=== PATIENT | male | born 1965 | race Caucasian/White ===

== ENCOUNTER 2017-04-08 15:35 | Emergency (ER) | payer MEDICAID ==
[2017-04-08 16:21] VITALS: BP 138/92
--- NOTE | 2017-04-08 16:49 | EDM.PDOC ---
ED HPI GENERAL MEDICAL PROBLEM - General Chief Complaint: Laceration Stated Complaint: FELL OFF LADDER AND CUT EYE ALSO SORE RIGHT SIDE Time Seen by Provider: 04/08/17 16:44 Source of Information: Reports: Patient History Limitations: Reports: No Limitations - History of Present Illness INITIAL COMMENTS - FREE TEXT/NARRATIVE: Fell off ladder from 6 feet up about 2 hours ago. Hit back of right chest as he was falling. Injured above right eye with an open wound. Denies LOC, although he has been drinking. Denies headache, nausea, change of vision. Onset: Today Onset Time: 02:00 Location: Reports: Face Quality: Reports: Dull, Sharp (in back on right side, hurting to touch) Severity: Mild Worsens with: Reports: Breathing Associated Symptoms: Reports: No Other Symptoms Right Chest Pain Score (Numeric/FACES): 8 - Related Data Allergies Allergy/AdvReac Type Severity Reaction Status Date / Time No Known Allergies Allergy Verified 02/16/14 21:55 Home Meds: Home Meds NK [No Known Home Meds] 04/08/17 [History] Past Medical History - Past Health History Medical/Surgical History: Denies Medical/Surgical History Neurological History: Reports: Seizure - Infectious Disease History Infectious Disease History: Reports: Chicken Pox - Past Surgical History Musculoskeletal Surgical History: Reports: Other (See Below) Social & Family History - Tobacco Use Smoking Status *Q: Heavy Tobacco Smoker Years of Tobacco use: 35 Packs/Tins Daily: 1 - Caffeine Use Caffeine Use: Reports: Coffee, Soda - Alcohol Use Days Per Week of Alcohol Use: 7 Number of Drinks Per Day: 5 Total Drinks Per Week: 35 - Recreational Drug Use Recreational Drug Use: No ED ROS GENERAL - Review of Systems Review Of Systems: See Below Constitutional: Reports: No Symptoms, Other (has been drinking) HEENT: Reports: Ear Discharge, Ear Pain, Eye Pain Respiratory: Reports: Other (hurts over posterior chest wall with deep breathing ) Cardiovascular: Reports: No Symptoms Endocrine: Reports: No Symptoms Musculoskeletal: Reports: No Symptoms Skin: Reports: Wound (laceration above right eye) Neurological: Reports: No Symptoms ED EXAM, SKIN/RASH Exam: See Below Exam Limited By: Intoxication General Appearance: Alert, No Apparent Distress Eye Exam: Bilateral Eye: Normal Inspection, Periorbital Changes (laceration above right eye in eyebrow), Other Ears: Normal External Exam, Normal Canal, Hearing Grossly Normal, Normal TMs Throat/Mouth: Normal Inspection, Normal Lips, Normal Teeth, Normal Gums, Normal Oropharynx, Normal Voice, No Airway Compromise Head: Other (cut above right eye) Neck: Normal Inspection Respiratory/Chest: Lungs Clear, Other (tender over posterior ribs in post axillary line) Cardiovascular: Normal Peripheral Pulses Extremities: Normal Inspection, Normal Range of Motion Neurological: Alert, Oriented Psychiatric: Normal Affect, Normal Mood Skin: Wound/Incision (laceration above right eye in eyebrow. V shaped pulled open. no active bleeding) Location, Skin: Face Lymphatic: No Adenopathy Course - Vital Signs Last Recorded V/S: Last Vital Signs Temp 37 C 04/08/17 16:21 Pulse 116 H 04/08/17 16:21 Resp 18 04/08/17 16:21 BP 138/92 H 04/08/17 16:21 Pulse Ox 93 L 04/08/17 16:21 - Orders/Labs/Meds Orders: Active Orders 24 hr Category Date Time Status Ribs 3V wo Chest Rt [CR] Stat Exams 04/08/17 16:49 Taken - Re-Assessments/Exams Free Text/Narrative Re-Assessment/Exam: 04/08/17 18:13 Sent to x-ray for rib x-rays. by my reading no sign of fracture, radiology reading pending Free Text/Narrative Re-Assessment/Exam: 04/08/17 18:14 Patient got up, took off gown and left the department without further treatment. Laceration was not repaired Departure - Departure Time of Disposition: 17:00 Disposition: Against Medical Advice 07 Condition: Fair Clinical Impression: Facial laceration, Contusion of rib on right side, Alcohol intoxication - Discharge Information Referrals: PCP,None [Primary Care Provider] - Forms: ED Department Discharge - My Orders Last 24 Hours: My Active Orders 04/08/17 16:49 Ribs 3V wo Chest Rt [CR] Stat - Assessment/Plan Last 24 Hours: My Active Orders 04/08/17 16:49 Ribs 3V wo Chest Rt [CR] Stat
--- NOTE | 2017-04-09 09:29 | CR ---
Ribs 3V wo Chest Rt INDICATION: fall with new rib pain FINDINGS: Comparison 01/27/2016. Normal heart size. Lungs are clear. Probable calcified right hilar ly mph node. Dedicated right rib views are unremarkable.
== END 2017-04-08 17:30 | disposition left against medical advice (07) ==
LOC: JP.ED 15:35
DX: S01.111A Laceration without foreign body of right eyelid and periocular area, initial encounter (principal); S20.211A Contusion of right front wall of thorax, initial encounter; F10.929 Alcohol use, unspecified with intoxication, unspecified; F17.210 Nicotine dependence, cigarettes, uncomplicated; W11.XXXA Fall on and from ladder, initial encounter
CPT/HCPCS: 71101-26; 71101-RT; 99284

== ENCOUNTER 2017-06-26 16:05 | Emergency (ER) | payer MEDICAID ==
[2017-06-26 16:20] VITALS: BP 138/86
== END 2017-06-26 16:53 | disposition left against medical advice (07) ==
LOC: JP.ED 16:05
DX: Z53.21 Procedure and treatment not carried out due to patient leaving prior to being seen by health care provider (principal)

== ENCOUNTER 2017-07-25 01:02 | Emergency (ER) | payer MEDICAID ==
--- NOTE | 2017-07-25 02:58 | EDM.PDOC ---
ED HPI GENERAL MEDICAL PROBLEM - General Chief Complaint: Wound Recheck Stated Complaint: SORE ON RIGHT LEG INFECTED? Time Seen by Provider: 07/25/17 01:35 Source of Information: Reports: Patient, Family History Limitations: Reports: No Limitations - History of Present Illness INITIAL COMMENTS - FREE TEXT/NARRATIVE: Pt arrived with a stasis type ulcer on the lateral aspect of the rt leg. He had a dressing on it and there was concern that the dressing was smelly. Onset: Gradual Duration: Day(s): Location: Reports: Lower Extremity, Right Associated Symptoms: Reports: No Other Symptoms Right Leg Pain Score (Numeric/FACES): 5 - Related Data Allergies Allergy/AdvReac Type Severity Reaction Status Date / Time No Known Allergies Allergy Verified 07/25/17 01:37 Home Meds: Home Meds Furosemide 1 tab PO DAILY 07/25/17 [History] Past Medical History - Past Health History Medical/Surgical History: Denies Medical/Surgical History Musculoskeletal History: Reports: Fracture Neurological History: Reports: Seizure Psychiatric History: Reports: Addiction - Infectious Disease History Infectious Disease History: Reports: Chicken Pox - Past Surgical History HEENT Surgical History: Reports: Eye Surgery Social & Family History - Tobacco Use Smoking Status *Q: Heavy Tobacco Smoker Years of Tobacco use: 38 Packs/Tins Daily: 1 - Caffeine Use Caffeine Use: Reports: Coffee, Soda - Alcohol Use Days Per Week of Alcohol Use: 7 Number of Drinks Per Day: 10 Total Drinks Per Week: 70 - Recreational Drug Use Recreational Drug Use: No ED ROS GENERAL - Review of Systems Review Of Systems: See Below Constitutional: Reports: No Symptoms HEENT: Reports: No Symptoms Respiratory: Reports: No Symptoms Cardiovascular: Reports: Chest Pain Endocrine: Reports: No Symptoms GI/Abdominal: Reports: No Symptoms : Reports: No Symptoms ED EXAM, SKIN/RASH Exam: See Below Text/Narrative:: pt arrived with a leg ulcer with some smelly drainage. It is more tender and there is concern about infection. Exam Limited By: No Limitations General Appearance: Alert, Anxious, Mild Distress Ears: Normal TMs Nose: Normal Inspection Throat/Mouth: Normal Inspection Head: Atraumatic Neck: Normal Inspection Respiratory/Chest: No Respiratory Distress Cardiovascular: Regular Rate, Rhythm GI/Abdominal: Soft, Non-Tender (Male) Exam: Deferred Rectal (Males) Exam: Deferred Back Exam: Normal Inspection Extremities: Other ( rt leg has definite stasis changes present. He has a large superficial ulcer on the leg. It is mildly red around the area and it is tender. ) Neurological: Alert, Oriented Course - Vital Signs Last Recorded V/S: Last Vital Signs Temp 37.1 C 07/25/17 01:31 Pulse 112 H 07/25/17 01:31 Resp 20 07/25/17 01:31 BP 133/81 07/25/17 01:31 Pulse Ox 90 L 07/25/17 01:31 - Orders/Labs/Meds Orders: Active Orders 24 hr Category Date Time Status Bacitracin [Bacitracin Oint 1 GM] Med 07/25/17 03:01 Once 1 dose TOP ONETIME ONE Medication Orders Bacitracin (Bacitracin Oint 1 Gm) 1 dose TOP ONETIME ONE Stop: 07/25/17 03:02 Labs: Laboratory Tests 07/25/17 07/25/17 Range/Units 02:21 02:21 WBC 8.9 (4.5-11.0) K/uL RBC 4.51 (4.30-5.90) M/uL Hgb 14.2 (12.0-15.0) g/dL Hct 43.5 (40.0-54.0) % MCV 97 (80-98) fL MCH 32 H (27-31) pg MCHC 33 (32-36) % Plt Count 187 (150-400) K/uL Neut % (Auto) 56 (36-66) % Lymph % (Auto) 15 L (24-44) % [place] % (Auto) 25 H (2-6) % Eos % (Auto) 2 (2-4) % Baso % (Auto) 2 H (0-1) % Sodium 139 L (140-148) mmol/L Potassium 3.6 (3.6-5.2) mmol/L Chloride 99 L (100-108) mmol/L Carbon Dioxide 27 (21-32) mmol/L Anion Gap 16.6 H (5.0-14.0) mmol/L BUN 15 (7-18) mg/dL Creatinine 0.6 L (0.8-1.3) mg/dL Est Cr Clr Drug Dosing 172.80 mL/min Estimated GFR (MDRD) > 60 (>60) Glucose 110 H (74-106) mg/dL Calcium 8.9 (8.5-10.1) mg/dL Total Bilirubin 0.3 (0.2-1.0) mg/dL AST 45 H (15-37) U/L ALT 47 (12-78) U/L Alkaline Phosphatase 80 (46-116) U/L Total Protein 7.6 (6.4-8.2) g/dL Albumin 3.2 L (3.4-5.0) g/dL Globulin 4.4 H (2.3-3.5) g/dL Albumin/Globulin Ratio 0.7 L (1.2-2.2) Meds: Medications Generic Name Dose Route Start Last Admin Trade Name Freq PRN Reason Stop Dose Admin Bacitracin 1 dose 07/25/17 03:01 Bacitracin Oint 1 Gm TOP 07/25/17 03:02 ONETIME ONE - Re-Assessments/Exams Free Text/Narrative Re-Assessment/Exam: 07/25/17 03:06 The wound was cleaned well and dressed with bacatracin, adaptic, tomasa and a salvatore wrap. Will refer to the wound clinic for possible coban dressing. Departure - Departure Time of Disposition: 02:56 Disposition: Home, Self-Care 01 Condition: Fair Clinical Impression: Stasis leg ulcer - Discharge Information Referrals: PCP,None [Primary Care Provider] - Forms: ED Department Discharge Care Plan Goals: referal to the wound clinic-- Dr Baig, keflex 500mg tid, reapply dressing once prior to the visit to the wound clinic. - My Orders Last 24 Hours: My Active Orders 07/25/17 03:01 Bacitracin [Bacitracin Oint 1 GM] 1 dose TOP ONETIME ONE - Assessment/Plan Last 24 Hours: My Active Orders 07/25/17 03:01 Bacitracin [Bacitracin Oint 1 GM] 1 dose TOP ONETIME ONE
[2017-07-25] MEDS ORDERED: Bacitracin Oint 1 GM U/D Packet TOP ONE (03:01)
[2017-07-25 03:21] VITALS: BP 105/77
== END 2017-07-25 03:39 | disposition home or self-care (01) ==
LOC: JP.ED 01:02
DX: I83.019 Varicose veins of right lower extremity with ulcer of unspecified site (principal); L97.819 Non-pressure chronic ulcer of other part of right lower leg with unspecified severity; F17.210 Nicotine dependence, cigarettes, uncomplicated; Z79.899 Other long term (current) drug therapy
CPT/HCPCS: 36415; 80053; 85025; 99283

== ENCOUNTER 2017-10-23 15:45 | Emergency (ER) | payer MEDICAID | END 2017-10-23 16:24 | disposition left against medical advice (07) | LOC: JP.ED 15:45 | DX: Z53.21 Procedure and treatment not carried out due to patient leaving prior to being seen by health care provider (principal) ==

== ENCOUNTER 2018-01-30 17:07 | Emergency (ER) | payer MEDICAID ==
[2018-01-30 17:59] VITALS: BP 127/92
--- NOTE | 2018-01-30 18:45 | EDM.PDOC ---
ED HPI GENERAL MEDICAL PROBLEM - General Chief Complaint: General Stated Complaint: SORES ON BOTH LEGS Time Seen by Provider: 01/30/18 18:45 Source of Information: Reports: Patient History Limitations: Reports: No Limitations - History of Present Illness INITIAL COMMENTS - FREE TEXT/NARRATIVE: pt arrived with increased redness and swelling in the lower legs. He haS BEEN OUT OF HIS FLUID PILLS. hE HAS SEEN dR [place] IN THE PAST. Onset: Gradual, Other ( hE HAS BEEN OUT OF TOWN AND OUT OF HIS MEDS FOR AWHILE. ) Duration: Day(s):, Other (pT IS QUITE INTOXICATED TODAY. ) Location: Reports: Lower Extremity, Left, Lower Extremity, Right Associated Symptoms: Reports: Other (PT HAS A BROKEN TOOTH ON HIS LEFT LOWER WHICH IS CUTTING INTO HIS TONGUE. ) lower legs Pain Score (Numeric/FACES): 3 - Related Data Allergies Allergy/AdvReac Type Severity Reaction Status Date / Time No Known Allergies Allergy Verified 01/30/18 18:09 Home Meds: Home Meds Furosemide 1 tab PO DAILY 07/25/17 [History] Past Medical History - Past Health History Medical/Surgical History: Denies Medical/Surgical History Musculoskeletal History: Reports: Fracture Neurological History: Reports: Seizure Psychiatric History: Reports: Addiction Dermatologic History: Reports: Cellulitis - Infectious Disease History Infectious Disease History: Reports: Chicken Pox - Past Surgical History HEENT Surgical History: Reports: Eye Surgery Social & Family History - Tobacco Use Smoking Status *Q: Current Every Day Smoker Years of Tobacco use: 30 Packs/Tins Daily: 1 - Caffeine Use Caffeine Use: Reports: Coffee - Alcohol Use Days Per Week of Alcohol Use: 7 Number of Drinks Per Day: 10 Total Drinks Per Week: 70 - Recreational Drug Use Recreational Drug Use: No ED ROS GENERAL - Review of Systems Review Of Systems: See Below Constitutional: Reports: No Symptoms HEENT: Reports: No Symptoms Respiratory: Reports: No Symptoms Cardiovascular: Reports: No Symptoms Endocrine: Reports: No Symptoms GI/Abdominal: Reports: No Symptoms : Reports: No Symptoms Musculoskeletal: Reports: Other (pT HAS PAIN HIS LEFT MOUTH AREA AND HE HAS PAIN SWELLING AND REDNESS IN HIS LEGS. ) Skin: Reports: Rash ED EXAM, GENERAL - Physical Exam Exam: See Below Free Text/Narrative:: pT ARRIVED WITH PAIN IN HIS RT LOWER MOLAR AREA. hE ALSO HAS NOTED INCREASED REDNESS IN HIS LOWER LEGS PARTICULARLY HIS RT LEG. hE HAS BEEN OUT OF HIS FLUID PILLS. Exam Limited By: No Limitations General Appearance: Alert, Obtunded, Other (PT IS INTOXICATED. ) Ears: Normal TMs Nose: Normal Inspection Throat/Mouth: Other (PT HAS A BROKEN MOLAR ON HIS LOWER RT AREA. tHERE DOES NOT APPEAR TO BE A ABCESS FORMATION) Head: Atraumatic Neck: Normal Inspection Respiratory/Chest: No Respiratory Distress Cardiovascular: Regular Rate, Rhythm GI/Abdominal: Soft, Non-Tender (Male) Exam: Deferred Rectal (Males) Exam: Deferred Back Exam: Normal Inspection Extremities: Pedal Edema, Increased Warmth, Redness, Other ( tHESE FINDINGS ARE NOT SEVERE. ) Neurological: Alert, Other (INTOXICATED. ) Course - Vital Signs Last Recorded V/S: Last Vital Signs Temp 36.1 C 01/30/18 18:08 Pulse 108 H 01/30/18 18:08 Resp 16 01/30/18 18:08 BP 127/92 H 01/30/18 18:08 Pulse Ox 95 01/30/18 18:08 - Orders/Labs/Meds Labs: Laboratory Tests 01/30/18 01/30/18 01/30/18 Range/Units 18:06 18:06 18:06 WBC 10.5 (4.5-11.0) K/uL RBC 4.90 (4.30-5.90) M/uL Hgb 14.6 (12.0-15.0) g/dL Hct 44.8 (40.0-54.0) % MCV 91 (80-98) fL MCH 30 (27-31) pg MCHC 33 (32-36) % Plt Count 223 (150-400) K/uL Neut % (Auto) 55 (36-66) % Lymph % (Auto) 30 (24-44) % [place] % (Auto) 11 H (2-6) % Eos % (Auto) 4 (2-4) % Baso % (Auto) 0 (0-1) % Sodium 144 (140-148) mmol/L Potassium 3.8 (3.6-5.2) mmol/L Chloride 104 (100-108) mmol/L Carbon Dioxide 28 (21-32) mmol/L Anion Gap 12.5 (5.0-14.0) mmol/L BUN 14 (7-18) mg/dL Creatinine 0.7 L (0.8-1.3) mg/dL Est Cr Clr Drug Dosing 148.11 mL/min Estimated GFR (MDRD) > 60 (>60) Glucose 97 (74-106) mg/dL Calcium 8.3 L (8.5-10.1) mg/dL Total Bilirubin 0.1 L D (0.2-1.0) mg/dL AST 12 L (15-37) U/L ALT 20 (12-78) U/L Alkaline Phosphatase 85 (46-116) U/L Ammonia 18 (11-32) mmol/L Total Protein 7.1 (6.4-8.2) g/dL Albumin 3.5 (3.4-5.0) g/dL Globulin 3.6 H (2.3-3.5) g/dL Albumin/Globulin Ratio 1.0 L (1.2-2.2) Urine Color Urine Appearance Urine pH (4.5-8.0) Ur Specific [place] (1.008-1.030) Urine Protein (NEGATIVE) mg/dL Urine Glucose (UA) (NEGATIVE) mg/dL Urine Ketones (NEGATIVE) mg/dL Urine Occult Blood (NEGATIVE) Urine Nitrite (NEGAITVE) Urine Bilirubin (NEGATIVE) Urine Urobilinogen (NORMAL) mg/dL Ur Leukocyte Esterase (NEGATIVE) Urine RBC (0-5) Urine WBC (0-5) Ur Epithelial Cells Amorphous Sediment Urine Bacteria Urine Mucus Urine Opiates Screen (NEGATIVE) Ur Oxycodone Screen (NEGATIVE) Urine Methadone Screen (NEGATIVE) Ur Propoxyphene Screen (NEGATIVE) Ur Barbiturates Screen (NEGATIVE) Ur Tricyclics Screen (NEGATIVE) Ur Phencyclidine Scrn (NEGATIVE) Ur Amphetamine Screen (NEGATIVE) U Methamphetamines Scrn (NEGATIVE) Urine MDMA Screen (NEGATIVE) U Benzodiazepines Scrn (NEGATIVE) U Cocaine Metab Screen (NEGATIVE) U Marijuana (THC) Screen (NEGATIVE) Ethyl Alcohol mg/dL 01/30/18 01/30/18 01/30/18 Range/Units 18:07 18:24 18:24 WBC (4.5-11.0) K/uL RBC (4.30-5.90) M/uL Hgb (12.0-15.0) g/dL Hct (40.0-54.0) % MCV (80-98) fL MCH (27-31) pg MCHC (32-36) % Plt Count (150-400) K/uL Neut % (Auto) (36-66) % Lymph % (Auto) (24-44) % [place] % (Auto) (2-6) % Eos % (Auto) (2-4) % Baso % (Auto) (0-1) % Sodium (140-148) mmol/L Potassium (3.6-5.2) mmol/L Chloride (100-108) mmol/L Carbon Dioxide (21-32) mmol/L Anion Gap (5.0-14.0) mmol/L BUN (7-18) mg/dL Creatinine (0.8-1.3) mg/dL Est Cr Clr Drug Dosing mL/min Estimated GFR (MDRD) (>60) Glucose (74-106) mg/dL Calcium (8.5-10.1) mg/dL Total Bilirubin (0.2-1.0) mg/dL AST (15-37) U/L ALT (12-78) U/L Alkaline Phosphatase (46-116) U/L Ammonia (11-32) mmol/L Total Protein (6.4-8.2) g/dL Albumin (3.4-5.0) g/dL Globulin (2.3-3.5) g/dL Albumin/Globulin Ratio (1.2-2.2) Urine Color Yellow Urine Appearance Clear Urine pH 6.0 (4.5-8.0) Ur Specific [place] 1.010 (1.008-1.030) Urine Protein Negative (NEGATIVE) mg/dL Urine Glucose (UA) Normal (NEGATIVE) mg/dL Urine Ketones Negative (NEGATIVE) mg/dL Urine Occult Blood Negative (NEGATIVE) Urine Nitrite Negative (NEGAITVE) Urine Bilirubin Negative (NEGATIVE) Urine Urobilinogen Normal (NORMAL) mg/dL Ur Leukocyte Esterase Negative (NEGATIVE) Urine RBC 0-5 (0-5) Urine WBC 0-5 (0-5) Ur Epithelial Cells Not seen Amorphous Sediment Not seen Urine Bacteria Not seen Urine Mucus Not seen Urine Opiates Screen Negative (NEGATIVE) Ur Oxycodone Screen Negative (NEGATIVE) Urine Methadone Screen Negative (NEGATIVE) Ur Propoxyphene Screen Negative (NEGATIVE) Ur Barbiturates Screen Negative (NEGATIVE) Ur Tricyclics Screen Negative (NEGATIVE) Ur Phencyclidine Scrn Negative (NEGATIVE) Ur Amphetamine Screen Negative (NEGATIVE) U Methamphetamines Scrn Negative (NEGATIVE) Urine MDMA Screen Negative (NEGATIVE) U Benzodiazepines Scrn Negative (NEGATIVE) U Cocaine Metab Screen Negative (NEGATIVE) U Marijuana (THC) Screen Negative (NEGATIVE) Ethyl Alcohol 325 mg/dL Meds: Medications Discontinued Medications Generic Name Dose Route Start Last Admin Trade Name Freq PRN Reason Stop Dose Admin Hydrocodone Bitart/Acetaminophen 1 tab 01/30/18 18:55 01/30/18 19:03 [place] 325-5 Mg PO 01/30/18 18:56 1 tab ONETIME ONE Administration Cephalexin 500 mg 01/30/18 18:55 01/30/18 19:02 Keflex PO 01/30/18 18:56 500 mg ONETIME ONE Administration Furosemide 40 mg 01/30/18 18:55 01/30/18 19:01 Lasix PO 01/30/18 18:56 40 mg ONETIME ONE Administration - Re-Assessments/Exams Free Text/Narrative Re-Assessment/Exam: 01/30/18 19:56 PT HAS A ETOH GREATER THAN 3. hE HAS A NORMAL WBC. hE WAS GIVEN LASIX 40M, KEFLEX 500MG AND NORCO 5/325 PRIOR TO LEAVING. hE WILL FILL [facility] PERSCRIPTIONS TOMORROW. Departure - Departure Time of Disposition: 18:52 Disposition: Home, Self-Care 01 Condition: Fair Clinical Impression: Cellulitis, Cellulitis of left lower extremity, Cellulitis of right lower extremity, Broken tooth, Edema extremities - Discharge Information Instructions: Cellulitis, Adult, [id number] Referrals: PCP,None [Primary Care Provider] - Forms: ED Department Discharge Care Plan Goals: elevate both legs, lasix 20mg daily, tylenol 3 1 tab q6h prn for pain #8, dental referal, referal to wound clinic. KEFLEX 500MG TID.
[2018-01-30] MEDS ORDERED: Acetaminophen/HYDROcodone 325-5 MG Tab PO ONE (18:55)
[2018-01-30] MEDS ORDERED: Furosemide 40 MG Tab PO ONE (18:55)
[2018-01-30] MEDS ORDERED: Cephalexin 250 MG Cap PO ONE (18:55)
== END 2018-01-30 19:10 | disposition home or self-care (01) ==
LOC: JP.ED 17:07
DX: L03.116 Cellulitis of left lower limb (principal); L03.115 Cellulitis of right lower limb; K03.81 Cracked tooth; F17.210 Nicotine dependence, cigarettes, uncomplicated; F10.129 Alcohol abuse with intoxication, unspecified; Y90.8 Blood alcohol level of 240 mg/100 ml or more
CPT/HCPCS: 36415; 80053; 80305; 81001; 82140; 85025; 99284; A9270; G0480

== ENCOUNTER 2020-01-31 11:05 | Emergency (ER) | payer MEDICAID ==
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
[2020-01-31] MEDS ORDERED: Sodium Chloride 0.9% 1,000 ML IV SCH ×2 (12:45→14:30)
--- NOTE | 2020-01-31 13:18 | CT ---
Head wo Cont CLINICAL HISTORY: Multiple falls, drinking heavily COMPARISON: 2016 TECHNIQUE: Transverse scans were obtained from the base of the skull through the vertex without IV contrast on a multislice, multidetector CT scanner. Auto dosage reduction and iterative reconstruction techniques employed. FINDINGS: No focal abnormal parenchymal density is identified. There is no mass effect, hemorrhage, or extraaxial collection. The basal cisterns and sulci over the convexities are prominent. The ventricles are prominent for age. IMPRESSION: Atrophic changes No focal lesion, hemorrhage or extra-axial collection Incidental note of some ethmoid sinusitis
[2020-01-31 15:32] VITALS: BP 120/67; PULSE 108
== END 2020-01-31 15:50 | disposition home or self-care (01) ==
LOC: JP.ED 11:05
DX: F10.129 Alcohol abuse with intoxication, unspecified (principal); Y90.8 Blood alcohol level of 240 mg/100 ml or more; S00.93XA Contusion of unspecified part of head, initial encounter; E86.0 Dehydration; N39.0 Urinary tract infection, site not specified; F17.210 Nicotine dependence, cigarettes, uncomplicated; W22.8XXA Striking against or struck by other objects, initial encounter
CPT/HCPCS: 36415; 70450; 80053; 80305; 80307; 81001; 83690; 85025; 87086; 96360; 96361; 99283; 99285; J7030

== ENCOUNTER 2021-05-28 15:29 | Emergency (ER) | payer MEDICAID ==
[2021-05-28 17:12] VITALS: BP 145/90; PULSE 113
--- NOTE | 2021-05-28 18:07 | EDM.PDOCBH ---
ED HPI GENERAL MEDICAL PROBLEM - General Chief Complaint: Drug or Alcohol Abuse Stated Complaint: CLEARANCE FOR [facility] Time Seen by Provider: 05/28/21 17:54 Source of Information: Reports: Patient History Limitations: Reports: No Limitations - History of Present Illness INITIAL COMMENTS - FREE TEXT/NARRATIVE: Natan is a 56-year-old male presenting to the ED for clearance for admission to [place]. Patient has history significant for alcohol dependence and is wanting to undergo detox. Patient drinks a quart of whiskey a day. He was brought in by his "kids sister" to help him get straightened out. During our discussion I mentioned that the patient would need to get a Covid test and have a blood draw at which point he decided he did not want any work-up and just simply wanted to leave. No other details were obtained other than the fact he has not had withdrawal seizures in the past. - Related Data Allergies Allergy/AdvReac Type Severity Reaction Status Date / Time No Known Allergies Allergy Verified 05/28/21 17:18 Home Meds: Home Meds NK [No Known Home Meds] 06/06/18 [History] Past Medical History - Past Health History Medical/Surgical History: Denies Medical/Surgical History HEENT History: Reports: None Cardiovascular History: Reports: Other (See Below), Prior Cardiac Arrest Other Cardiovascular History: 4years ago cardiac arrest Musculoskeletal History: Reports: Fracture Neurological History: Reports: Seizure Psychiatric History: Reports: Addiction Dermatologic History: Reports: Cellulitis Other Dermatologic History: large red/dry area noted to the right leg [facility] states has been going on for 3 years. - Infectious Disease History Infectious Disease History: Reports: Chicken Pox - Past Surgical History Head Surgeries/Procedures: Reports: None HEENT Surgical History: Reports: Eye Surgery Cardiovascular Surgical History: Reports: None Neurological Surgical History: Reports: None Musculoskeletal Surgical History: Reports: Other (See Below) Other Musculoskeletal Surgeries/Procedures:: wrist fracture Dermatological Surgical History: Reports: None Social & Family History - Tobacco Use Tobacco Use Status *Q: Current Every Day Tobacco User Years of Tobacco use: 35 Packs/Tins Daily: 1 Used Tobacco, but Quit: No Second Hand Smoke Exposure: No - Caffeine Use Caffeine Use: Reports: Coffee, Soda, Tea - Alcohol Use Days Per Week of Alcohol Use: 7 Number of Drinks Per Day: 1 Total Drinks Per Week: 7 - Recreational Drug Use Recreational Drug Use: No ED ROS GENERAL - Review of Systems Review Of Systems: See Below Constitutional: Reports: Diaphoresis HEENT: Reports: No Symptoms Respiratory: Reports: No Symptoms Cardiovascular: Reports: No Symptoms Endocrine: Reports: No Symptoms GI/Abdominal: Reports: No Symptoms : Reports: No Symptoms Musculoskeletal: Reports: No Symptoms Skin: Reports: No Symptoms Neurological: Reports: No Symptoms Psychiatric: Reports: Anxiety, Cravings (Alcohol) Hematologic/Lymphatic: Reports: No Symptoms Immunologic: Reports: No Symptoms ED EXAM, BEHAVIORAL HEALTH - Physical Exam Exam: See Below Exam Limited By: No Limitations General Appearance: Alert, No Apparent Distress, Anxious Eye Exam: Bilateral Eye: PERRL Throat/Mouth: Normal Inspection, Normal Oropharynx, Normal Voice, No Airway Compromise Head: Atraumatic, Normocephalic Neck: Normal Inspection, Supple Respiratory/Chest: No Respiratory Distress, Lungs Clear, Normal Breath Sounds Cardiovascular: Normal Peripheral Pulses, Regular Rate, Rhythm, No Murmur GI/Abdominal: Normal Bowel Sounds, Soft, Non-Tender Neurological: Alert, Normal Mood/Affect, Normal Cognition, Normal Gait, No Motor/Sensory Deficits, Oriented x 3 Psychiatric: Restless, Agitated Skin Exam: Diaphoretic COURSE, BEHAVIORAL HEALTH COMP - Course Vital Signs: Last Vital Signs Temp 36.7 C 05/28/21 17:23 Pulse 113 H 05/28/21 17:23 Resp 16 05/28/21 17:23 BP 145/90 H 05/28/21 17:23 Pulse Ox 92 L 05/28/21 17:23 Orders, Labs, Meds: Active Orders 24 hr Category Date Time Status COVID-19/FLU A+B/RSV [MOLEC] Stat Lab 05/28/21 17:55 Ordered Isolation [COMM] Stat Oth 05/28/21 17:55 Ordered Laboratory Tests 05/28/21 Range/Units 17:24 Urine Opiates Screen Presumptive positive H (NEGATIVE) Ur Oxycodone Screen Negative (NEGATIVE) Urine Methadone Screen Negative (NEGATIVE) Ur Propoxyphene Screen Negative (NEGATIVE) Ur Barbiturates Screen Negative (NEGATIVE) Ur Tricyclics Screen Negative (NEGATIVE) Ur Phencyclidine Scrn Negative (NEGATIVE) Ur Amphetamine Screen Negative (NEGATIVE) U Methamphetamines Scrn Negative (NEGATIVE) Urine MDMA Screen Negative (NEGATIVE) U Benzodiazepines Scrn Negative (NEGATIVE) U Cocaine Metab Screen Negative (NEGATIVE) U Marijuana (THC) Screen Negative (NEGATIVE) Re-Assessment/Re-Exam: During the evaluation, the patient was informed that he would need a Covid test and some blood work. He apparently has had a bad experience with both and refused both. I explained to him that [facility] would likely not take him without either test being done which point he said "I'm done" and wanted to leave. Departure - Departure Time of Disposition: 18:07 Disposition: Home, Self-Care 01 Clinical Impression: Alcohol abuse, Intoxication - Discharge Information Instructions: Alcohol Use Disorder Referrals: PCP,None [Primary Care Provider] - Forms: ED Department Discharge Sepsis Event Note (ED) - Evaluation Sepsis Screening Result: No Definite Risk - Focused Exam Vital Signs: Vital Signs Temp Pulse Resp BP Pulse Ox 05/28/21 17:23 36.7 C 113 H 16 145/90 H 92 L 05/28/21 17:11 36.7 C 113 H 16 145/90 H 92 L - Problem List & Annotations (1) Alcohol intoxication SNOMED Code(s): 03647442 Code(s): F10.929 - ALCOHOL USE, UNSPECIFIED WITH INTOXICATION, UNSPECIFIED Status: Acute Priority: Medium Current Visit: No Qualifiers: Complication of substance-induced condition: uncomplicated Qualified Code(s): F10.920 - Alcohol use, unspecified with intoxication, uncomplicated (2) Alcohol abuse SNOMED Code(s): 14120707 Code(s): F10.10 - ALCOHOL ABUSE, UNCOMPLICATED Status: Chronic Priority: Medium Current Visit: No - Problem List Review Problem List Initiated/Reviewed/Updated: Yes - My Orders Last 24 Hours: My Active Orders 05/28/21 17:55 COVID-19/FLU A+B/RSV [MOLEC] Stat Isolation [COMM] Stat - Assessment/Plan Last 24 Hours: My Active Orders 05/28/21 17:55 COVID-19/FLU A+B/RSV [MOLEC] Stat Isolation [COMM] Stat
== END 2021-05-28 18:12 | disposition home or self-care (01) ==
LOC: JP.ED 15:29
DX: F10.129 Alcohol abuse with intoxication, unspecified (principal); Z72.0 Tobacco use
CPT/HCPCS: 80305-QW; 99284

== ENCOUNTER 2021-05-30 08:34 | Emergency (ER) | payer MEDICAID ==
[2021-05-30 08:39] VITALS: BP 169/96; PULSE 101
--- NOTE | 2021-05-30 08:54 | EDM.PDOCBH ---
ED HPI GENERAL MEDICAL PROBLEM - General Chief Complaint: General Stated Complaint: COUGH Time Seen by Provider: 05/30/21 08:44 Source of Information: Reports: Patient, Old Records, RN Notes Reviewed History Limitations: Reports: No Limitations - History of Present Illness INITIAL COMMENTS - FREE TEXT/NARRATIVE: 56-year-old gentleman presents emergency department day complaint of clearance for [facility] detoxification facility. He has a long history of alcohol abuse and dependence he currently uses whiskey large amounts over a quart per day. Was evaluated 2 days prior brought in by family member same complaint however he had refused any blood work or Covid testing prior to admission to [facility] and left. He returns today by ambulance requesting evaluation for [facility]. He states he does have a known history of COPD he does not take any medications does not have a regular doctor has had leg edema for some time as well as a chronic cough. Takes no home medications - Related Data Allergies Allergy/AdvReac Type Severity Reaction Status Date / Time No Known Allergies Allergy Verified 05/30/21 08:39 Home Meds: Home Meds NK [No Known Home Meds] 06/06/18 [History] Past Medical History HEENT History: Reports: None Cardiovascular History: Reports: CAD, Prior Cardiac Arrest, Other (See Below) Other Cardiovascular History: 4years ago cardiac arrest Respiratory History: Reports: COPD Musculoskeletal History: Reports: Fracture Neurological History: Reports: Seizure (Alcohol-related) Psychiatric History: Reports: Addiction Dermatologic History: Reports: Cellulitis Other Dermatologic History: large red/dry area noted to the right leg too states has been going on for 3 years. - Infectious Disease History Infectious Disease History: Reports: Chicken Pox - Past Surgical History Head Surgeries/Procedures: Reports: None HEENT Surgical History: Reports: Eye Surgery Cardiovascular Surgical History: Reports: None Neurological Surgical History: Reports: None Musculoskeletal Surgical History: Reports: Other (See Below) Other Musculoskeletal Surgeries/Procedures:: wrist fracture Dermatological Surgical History: Reports: None Social & Family History - Tobacco Use Tobacco Use Status *Q: Current Every Day Tobacco User Years of Tobacco use: 40 Packs/Tins Daily: 1 - Caffeine Use Caffeine Use: Reports: Coffee, Soda, Tea - Alcohol Use Days Per Week of Alcohol Use: 7 Number of Drinks Per Day: 14 Total Drinks Per Week: 98 - Recreational Drug Use Recreational Drug Use: No ED ROS GENERAL - Review of Systems Review Of Systems: See Below Constitutional: Reports: No Symptoms HEENT: Reports: No Symptoms Respiratory: Reports: Shortness of Breath, Cough Cardiovascular: Reports: Dyspnea on Exertion, Edema GI/Abdominal: Reports: No Symptoms ED EXAM, BEHAVIORAL HEALTH - Physical Exam Exam: See Below Exam Limited By: Intoxication General Appearance: Alert, No Apparent Distress Respiratory/Chest: No Respiratory Distress, No Accessory Muscle Use, Chest Non- Tender, Decreased Breath Sounds Cardiovascular: Regular Rate, Rhythm, No Murmur GI/Abdominal: Soft, Non-Tender Extremities: Pedal Edema COURSE, BEHAVIORAL HEALTH COMP - Course Vital Signs: Last Vital Signs Temp 97.7 F 05/30/21 08:37 Pulse 101 H 05/30/21 08:37 Resp 18 05/30/21 08:37 BP 169/96 H 05/30/21 08:37 Pulse Ox 96 05/30/21 08:37 Orders, Labs, Meds: Laboratory Tests 05/30/21 05/30/21 05/30/21 Range/Units 09:05 09:05 09:05 WBC 9.0 (4.5-11.0) K/uL RBC 4.99 (4.30-5.90) M/uL Hgb 14.9 (12.0-15.0) g/dL Hct 44.9 (40.0-54.0) % MCV 90 (80-98) fL MCH 30 (27-31) pg MCHC 33 (32-36) % Plt Count 192 (150-400) K/uL Neut % (Auto) 71.5 H (36-66) % Lymph % (Auto) 13.9 L (24-44) % Major % (Auto) 13.3 H (2-6) % Eos % (Auto) 0.7 L (2-4) % Baso % (Auto) 0.6 (0-1) % Sodium 138 L (140-148) mmol/L Potassium 4.1 (3.6-5.2) mmol/L Chloride 97 L (100-108) mmol/L Carbon Dioxide 27 (21-32) mmol/L Anion Gap 18.1 H (5.0-14.0) mmol/L BUN 13 (7-18) mg/dL Creatinine 0.7 L (0.8-1.3) mg/dL Est Cr Clr Drug Dosing 141.22 mL/min Estimated GFR (MDRD) > 60 (>60) Glucose 94 (74-106) mg/dL Calcium 8.6 (8.5-10.1) mg/dL Total Bilirubin 0.4 D (0.2-1.0) mg/dL AST 25 D (15-37) U/L ALT 31 (12-78) U/L Alkaline Phosphatase 79 (46-116) U/L Total Protein 7.0 (6.4-8.2) g/dL Albumin 3.6 (3.4-5.0) g/dL Globulin 3.4 (2.3-3.5) g/dL Albumin/Globulin Ratio 1.1 L (1.2-2.2) Urine Opiates Screen (NEGATIVE) Ur Oxycodone Screen (NEGATIVE) Urine Methadone Screen (NEGATIVE) Ur Propoxyphene Screen (NEGATIVE) Ur Barbiturates Screen (NEGATIVE) Ur Tricyclics Screen (NEGATIVE) Ur Phencyclidine Scrn (NEGATIVE) Ur Amphetamine Screen (NEGATIVE) U Methamphetamines Scrn (NEGATIVE) Urine MDMA Screen (NEGATIVE) U Benzodiazepines Scrn (NEGATIVE) U Cocaine Metab Screen (NEGATIVE) U Marijuana (THC) Screen (NEGATIVE) Ethyl Alcohol 70 mg/dL SARS CoV-2 RNA Rapid CAIN 05/30/21 05/30/21 Range/Units 09:14 09:58 WBC (4.5-11.0) K/uL RBC (4.30-5.90) M/uL Hgb (12.0-15.0) g/dL Hct (40.0-54.0) % MCV (80-98) fL MCH (27-31) pg MCHC (32-36) % Plt Count (150-400) K/uL Neut % (Auto) (36-66) % Lymph % (Auto) (24-44) % Major % (Auto) (2-6) % Eos % (Auto) (2-4) % Baso % (Auto) (0-1) % Sodium (140-148) mmol/L Potassium (3.6-5.2) mmol/L Chloride (100-108) mmol/L Carbon Dioxide (21-32) mmol/L Anion Gap (5.0-14.0) mmol/L BUN (7-18) mg/dL Creatinine (0.8-1.3) mg/dL Est Cr Clr Drug Dosing mL/min Estimated GFR (MDRD) (>60) Glucose (74-106) mg/dL Calcium (8.5-10.1) mg/dL Total Bilirubin (0.2-1.0) mg/dL AST (15-37) U/L ALT (12-78) U/L Alkaline Phosphatase (46-116) U/L Total Protein (6.4-8.2) g/dL Albumin (3.4-5.0) g/dL Globulin (2.3-3.5) g/dL Albumin/Globulin Ratio (1.2-2.2) Urine Opiates Screen Negative (NEGATIVE) Ur Oxycodone Screen Negative (NEGATIVE) Urine Methadone Screen Negative (NEGATIVE) Ur Propoxyphene Screen Negative (NEGATIVE) Ur Barbiturates Screen Negative (NEGATIVE) Ur Tricyclics Screen Negative (NEGATIVE) Ur Phencyclidine Scrn Negative (NEGATIVE) Ur Amphetamine Screen Negative (NEGATIVE) U Methamphetamines Scrn Negative (NEGATIVE) Urine MDMA Screen Negative (NEGATIVE) U Benzodiazepines Scrn Negative (NEGATIVE) U Cocaine Metab Screen Negative (NEGATIVE) U Marijuana (THC) Screen Negative (NEGATIVE) Ethyl Alcohol mg/dL SARS CoV-2 RNA Rapid CAIN Negative Medications Discontinued Medications Generic Name Dose Route Start Last Admin Trade Name Rinku PRN Reason Stop Dose Admin Diazepam 5 mg 05/30/21 11:02 05/30/21 11:06 Diazepam 5 Mg Tab PO 05/30/21 11:03 5 mg ONETIME ONE Administration Departure - Departure Time of Disposition: 12:52 Disposition: DC/Tfer to [facility]pt Rehab Fac 62 Condition: Poor Clinical Impression: Alcohol abuse Alcohol intoxication Qualifiers: Complication of substance-induced condition: uncomplicated Qualified Code(s): F10.920 - Alcohol use, unspecified with intoxication, uncomplicated - Discharge Information Instructions: Alcohol Use Disorder Referrals: PCP,None [Primary Care Provider] - Forms: ED Department Discharge Additional Instructions: Please report [facility] Sepsis Event Note (ED) - Evaluation Sepsis Screening Result: No Definite Risk - Focused Exam Vital Signs: Vital Signs Temp Pulse Resp BP Pulse Ox 05/30/21 08:37 97.7 F 101 H 18 169/96 H 96 - Assessment/Plan Plan: Assessment Acuity = acute Site and laterality = alcohol intoxication with dependence complicating the patient with chronic medical problems of coronary artery disease, COPD probable cor pulmonale leading to lower extremity edema with chronic venous stasis dermatitis Etiology = addiction and medical compliance Manifestations = chronic cough and dyspnea Location of injury = Home Lab values = CBC, CMP unremarkable urine drug screen unremarkable alcohol is at 70, Covid was negative Plan This gentleman has multiple medical problems he has not established with primary care his problems are chronic in nature he is not taking any medications for his coronary artery disease not taking any medications for his cholesterol or his hypertension he is not on treatment for his COPD or his probable cor pulmonale. All this is compounded by his use for alcohol the immediate need for this gentleman is alcohol detoxification and an established with primary care to start working on his multiple medical problems. This note was dictated using [employer] voice recognition software please call with any questions on syntax or grammar. Is a strata I got some creamer on smoking
[2021-05-30] MEDS ORDERED: Diazepam 5 MG Tab PO ONE (11:02)
== END 2021-05-30 13:42 ==
LOC: JP.ED 08:34
DX: F10.129 Alcohol abuse with intoxication, unspecified (principal); I25.10 Atherosclerotic heart disease of native coronary artery without angina pectoris; J44.9 Chronic obstructive pulmonary disease, unspecified; Z72.0 Tobacco use; Z20.822 Contact with and (suspected) exposure to COVID-19; Y90.3 Blood alcohol level of 60-79 mg/100 ml
CPT/HCPCS: 36415; 80053; 80305; 80307; 85025; 87635; 99285; A9270; U0002

== ENCOUNTER 2021-07-15 11:51 | Emergency (ER) | payer MEDICAID ==
[2021-07-15 12:11] VITALS: BP 137/86
--- NOTE | 2021-07-15 12:36 | EDM.PDOCBH ---
ED HPI GENERAL MEDICAL PROBLEM - General Chief Complaint: Drug or Alcohol Abuse Stated Complaint: MAVERICK NAPIER Time Seen by Provider: 07/15/21 12:33 Source of Information: Reports: Patient, Family History Limitations: Reports: No Limitations - History of Present Illness INITIAL COMMENTS - FREE TEXT/NARRATIVE: pt arrived with a history of drinking 1/2 gallon of whiskey per day. He is not eating. He lives alone. He is not vomiting. He has not been able to stay sober for more than 2 monthes. Onset: Gradual Duration: Week(s): Location: Reports: Generalized, Other (pt appears quite intoxicated at this point. ) Associated Symptoms: Reports: No Other Symptoms, Other (pt does smoke a pack of cigarettes daily. ) - Related Data Allergies Allergy/AdvReac Type Severity Reaction Status Date / Time No Known Allergies Allergy Verified 07/15/21 12:09 Home Meds: Home Meds NK [No Known Home Meds] 06/06/18 [History] Past Medical History - Past Health History Medical/Surgical History: Denies Medical/Surgical History HEENT History: Reports: Impaired Vision Cardiovascular History: Reports: CAD, Prior Cardiac Arrest, Other (See Below) Other Cardiovascular History: 4years ago cardiac arrest Respiratory History: Reports: COPD Musculoskeletal History: Reports: Fracture Neurological History: Reports: Seizure Psychiatric History: Reports: Addiction Dermatologic History: Reports: Cellulitis Other Dermatologic History: large red/dry area noted to the right leg carlyn states has been going on for 3 years. - Infectious Disease History Infectious Disease History: Reports: Chicken Pox - Past Surgical History Head Surgeries/Procedures: Reports: None HEENT Surgical History: Reports: Eye Surgery Cardiovascular Surgical History: Reports: None Respiratory Surgical History: Reports: None Neurological Surgical History: Reports: None Musculoskeletal Surgical History: Reports: Other (See Below) Other Musculoskeletal Surgeries/Procedures:: wrist fracture Dermatological Surgical History: Reports: None Social & Family History - Tobacco Use Tobacco Use Status *Q: Current Every Day Tobacco User Years of Tobacco use: 40 Packs/Tins Daily: 1 - Caffeine Use Caffeine Use: Reports: Coffee, Soda, Tea - Alcohol Use Days Per Week of Alcohol Use: 7 Number of Drinks Per Day: 4 Total Drinks Per Week: 28 - Recreational Drug Use Recreational Drug Use: No ED ROS GENERAL - Review of Systems Review Of Systems: See Below Constitutional: Reports: No Symptoms HEENT: Reports: No Symptoms Respiratory: Reports: No Symptoms Endocrine: Reports: No Symptoms GI/Abdominal: Reports: Decreased Appetite : Reports: No Symptoms Musculoskeletal: Reports: No Symptoms Skin: Reports: No Symptoms ED EXAM, BEHAVIORAL HEALTH - Physical Exam Exam: See Below Text/Narrative:: pt arrived statinghe has been drinking 1/2 gallon of whiskey daily. He definitely needs help. Exam Limited By: No Limitations General Appearance: Alert, Anxious Ears: Normal TMs Nose: Normal Inspection Throat/Mouth: Normal Inspection Head: Atraumatic Neck: Normal Inspection Respiratory/Chest: No Respiratory Distress Cardiovascular: Regular Rate, Rhythm, Tachycardia, Other (pt has a hr of 100. ) GI/Abdominal: Soft, Non-Tender (Male) Exam: Deferred Rectal (Males) Exam: Deferred Back Exam: Normal Inspection Extremities: Other (pt has edema in both legs. He has marked staus changes. ) Neurological: Normal Cognition Psychiatric: Alert, Normal Cognition, Oriented, Restless Skin Exam: Other ( stais chnges in both legs. ) COURSE, BEHAVIORAL HEALTH COMP - Course Vital Signs: Last Vital Signs Temp Pulse 124 H 07/15/21 12:16 Resp 18 07/15/21 12:16 BP 137/86 07/15/21 12:16 Pulse Ox 93 L 07/15/21 12:16 Orders, Labs, Meds: Laboratory Tests 07/15/21 07/15/21 07/15/21 Range/Units 12:10 12:10 12:20 WBC (4.5-11.0) K/uL RBC (4.30-5.90) M/uL Hgb (12.0-15.0) g/dL Hct (40.0-54.0) % MCV (80-98) fL MCH (27-31) pg MCHC (32-36) % Plt Count (150-400) K/uL Neut % (Auto) (36-66) % Lymph % (Auto) (24-44) % [place] % (Auto) (2-6) % Eos % (Auto) (2-4) % Baso % (Auto) (0-1) % Sodium (140-148) mmol/L Potassium (3.6-5.2) mmol/L Chloride (100-108) mmol/L Carbon Dioxide (21-32) mmol/L Anion Gap (5.0-14.0) mmol/L BUN (7-18) mg/dL Creatinine (0.8-1.3) mg/dL Est Cr Clr Drug Dosing mL/min Estimated GFR (MDRD) (>60) Glucose (74-106) mg/dL Calcium (8.5-10.1) mg/dL Total Bilirubin (0.2-1.0) mg/dL AST (15-37) U/L ALT (12-78) U/L Alkaline Phosphatase (46-116) U/L Total Protein (6.4-8.2) g/dL Albumin (3.4-5.0) g/dL Globulin (2.3-3.5) g/dL Albumin/Globulin Ratio (1.2-2.2) Urine Color Yellow (YELLOW) Urine Appearance Clear (CLEAR) Urine pH 6.0 (5.0-8.0) Ur Specific [place] >= 1.030 (1.008-1.030) Urine Protein >=300 H (NEGATIVE) mg/dL Urine Glucose (UA) Negative (NEGATIVE) mg/dL Urine Ketones 40 H (NEGATIVE) mg/dL Urine Occult Blood Moderate H (NEGATIVE) Urine Nitrite Negative (NEGATIVE) Urine Bilirubin Small H (NEGATIVE) Urine Urobilinogen 4.0 H (0.2-1.0) EU/dL Ur Leukocyte Esterase Negative (NEGATIVE) Urine RBC 0-5 (0-5) Urine WBC 0-5 (0-5) Ur Epithelial Cells Occasional Amorphous Sediment Few Urine Bacteria Occasional Urine Mucus Few Urine Opiates Screen Negative (NEGATIVE) Ur Oxycodone Screen Negative (NEGATIVE) Urine Methadone Screen Negative (NEGATIVE) Ur Propoxyphene Screen Negative (NEGATIVE) Ur Barbiturates Screen Negative (NEGATIVE) Ur Tricyclics Screen Negative (NEGATIVE) Ur Phencyclidine Scrn Negative (NEGATIVE) Ur Amphetamine Screen Negative (NEGATIVE) U Methamphetamines Scrn Negative (NEGATIVE) Urine MDMA Screen Negative (NEGATIVE) U Benzodiazepines Scrn Negative (NEGATIVE) U Cocaine Metab Screen Negative (NEGATIVE) U Marijuana (THC) Screen Negative (NEGATIVE) Ethyl Alcohol mg/dL SARS CoV-2 RNA Rapid CAIN Negative 07/15/21 07/15/21 07/15/21 Range/Units 12:23 12:23 12:23 WBC 7.7 (4.5-11.0) K/uL RBC 5.19 (4.30-5.90) M/uL Hgb 15.7 H (12.0-15.0) g/dL Hct 46.9 (40.0-54.0) % MCV 90 (80-98) fL MCH 30 (27-31) pg MCHC 34 (32-36) % Plt Count 80 L (150-400) K/uL Neut % (Auto) 75.8 H (36-66) % Lymph % (Auto) 8.5 L (24-44) % [place] % (Auto) 14.5 H (2-6) % Eos % (Auto) 0.8 L (2-4) % Baso % (Auto) 0.4 (0-1) % Sodium 133 L (140-148) mmol/L Potassium 3.9 (3.6-5.2) mmol/L Chloride 95 L (100-108) mmol/L Carbon Dioxide 27 (21-32) mmol/L Anion Gap 14.9 H (5.0-14.0) mmol/L BUN 22 H D (7-18) mg/dL Creatinine 0.7 L (0.8-1.3) mg/dL Est Cr Clr Drug Dosing 89.00 mL/min Estimated GFR (MDRD) > 60 (>60) Glucose 167 H (74-106) mg/dL Calcium 8.7 (8.5-10.1) mg/dL Total Bilirubin 0.8 D (0.2-1.0) mg/dL AST 77 H D (15-37) U/L ALT 68 D (12-78) U/L Alkaline Phosphatase 82 (46-116) U/L Total Protein 7.3 (6.4-8.2) g/dL Albumin 3.8 (3.4-5.0) g/dL Globulin 3.5 (2.3-3.5) g/dL Albumin/Globulin Ratio 1.1 L (1.2-2.2) Urine Color (YELLOW) Urine Appearance (CLEAR) Urine pH (5.0-8.0) Ur Specific [place] (1.008-1.030) Urine Protein (NEGATIVE) mg/dL Urine Glucose (UA) (NEGATIVE) mg/dL Urine Ketones (NEGATIVE) mg/dL Urine Occult Blood (NEGATIVE) Urine Nitrite (NEGATIVE) Urine Bilirubin (NEGATIVE) Urine Urobilinogen (0.2-1.0) EU/dL Ur Leukocyte Esterase (NEGATIVE) Urine RBC (0-5) Urine WBC (0-5) Ur Epithelial Cells Amorphous Sediment Urine Bacteria Urine Mucus Urine Opiates Screen (NEGATIVE) Ur Oxycodone Screen (NEGATIVE) Urine Methadone Screen (NEGATIVE) Ur Propoxyphene Screen (NEGATIVE) Ur Barbiturates Screen (NEGATIVE) Ur Tricyclics Screen (NEGATIVE) Ur Phencyclidine Scrn (NEGATIVE) Ur Amphetamine Screen (NEGATIVE) U Methamphetamines Scrn (NEGATIVE) Urine MDMA Screen (NEGATIVE) U Benzodiazepines Scrn (NEGATIVE) U Cocaine Metab Screen (NEGATIVE) U Marijuana (THC) Screen (NEGATIVE) Ethyl Alcohol 167 mg/dL SARS CoV-2 RNA Rapid CAIN Medications Discontinued Medications Generic Name Dose Route Start Last Admin Trade Name Freq PRN Reason Stop Dose Admin Lorazepam 1 mg 07/15/21 13:01 Lorazepam 1 Mg Tab PO 07/15/21 13:02 ONETIME ONE Medical Clearance: 07/15/21 13:05 pt has a negative drug scree and his etoh is .167. he is coviod neg. Departure - Departure Time of Disposition: 13:01 Disposition: DC/Tfer to [facility] Condition: Fair Clinical Impression: ETOH abuse, Dehydration - Discharge Information Referrals: PCP,None [Primary Care Provider] - Forms: ED Department Discharge Care Plan Goals: push fluids, pt will be discharged to detox. Sepsis Event Note (ED) - Focused Exam Vital Signs: Vital Signs Pulse Resp BP Pulse Ox 07/15/21 12:16 124 H 18 137/86 93 L 07/15/21 12:09 124 H 18 137/86 93 L
[2021-07-15] MEDS ORDERED: LORazepam 1 MG Tab PO ONE (13:01)
[2021-07-15 13:06] VITALS: PULSE 122
== END 2021-07-15 14:12 ==
LOC: JP.ED 11:51
DX: F10.10 Alcohol abuse, uncomplicated (principal); E86.0 Dehydration; I25.10 Atherosclerotic heart disease of native coronary artery without angina pectoris; J44.9 Chronic obstructive pulmonary disease, unspecified; F17.210 Nicotine dependence, cigarettes, uncomplicated; Y90.6 Blood alcohol level of 120-199 mg/100 ml; Z20.822 Contact with and (suspected) exposure to COVID-19
CPT/HCPCS: 36415; 80053; 80305; 80307; 81001; 85025; 87635; 99284; A9270; U0002

== ENCOUNTER 2021-09-01 11:12 | Emergency (ER) | payer MEDICAID ==
[2021-09-01 11:33] VITALS: BP 166/97; PULSE 101
[2021-09-01] MEDS ORDERED: Thiamine 100 MG Tab PO ONE (12:15)
--- NOTE | 2021-09-01 12:20 | EDM.PDOCBH ---
ED HPI GENERAL MEDICAL PROBLEM - General Chief Complaint: Drug or Alcohol Abuse Stated Complaint: MAVERICK BOO EVAL Time Seen by Provider: 09/01/21 12:00 Source of Information: Reports: Patient, Old Records History Limitations: Reports: No Limitations - History of Present Illness INITIAL COMMENTS - FREE TEXT/NARRATIVE: 56 yo male is here requesting medical clearance before admission to [facility] for alcohol detox. Was living in a motel in [place] month to month, but just got evicted. His brother drove him here for eval. Drinks a pint of whiskey a day. Smokes a ppd. Has been to [facility] in the past. His last drink was yesterday. 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) (none) - Related Data Allergies Allergy/AdvReac Type Severity Reaction Status Date / Time No Known Allergies Allergy Verified 09/01/21 12:20 Home Meds: Home Meds NK [No Known Home Meds] 06/06/18 [History] Past Medical History - Past Health History Medical/Surgical History: Denies Medical/Surgical History HEENT History: Reports: Impaired Vision Cardiovascular History: Reports: CAD, Prior Cardiac Arrest, Other (See Below) Other Cardiovascular History: 4years ago cardiac arrest Respiratory History: Reports: COPD Musculoskeletal History: Reports: Fracture Neurological History: Reports: Seizure Psychiatric History: Reports: Addiction Dermatologic History: Reports: Cellulitis Other Dermatologic History: large red/dry area noted to the right leg too states has been going on for 3 years. - Infectious Disease History Infectious Disease History: Reports: Chicken Pox - Past Surgical History Head Surgeries/Procedures: Reports: None HEENT Surgical History: Reports: Eye Surgery Cardiovascular Surgical History: Reports: None Respiratory Surgical History: Reports: None Neurological Surgical History: Reports: None Musculoskeletal Surgical History: Reports: Other (See Below) Other Musculoskeletal Surgeries/Procedures:: wrist fracture Dermatological Surgical History: Reports: None Social & Family History - Caffeine Use Caffeine Use: Reports: Coffee, Soda, Tea ED ROS GENERAL - Review of Systems Review Of Systems: See Below Constitutional: Reports: Malaise, Decreased Appetite HEENT: Reports: No Symptoms Respiratory: Reports: Cough (not new) Cardiovascular: Reports: No Symptoms Endocrine: Reports: No Symptoms GI/Abdominal: Reports: No Symptoms : Reports: No Symptoms Musculoskeletal: Reports: No Symptoms Skin: Reports: No Symptoms Neurological: Reports: Tremors Psychiatric: Reports: Cravings ED EXAM, BEHAVIORAL HEALTH - Physical Exam Exam: See Below Exam Limited By: No Limitations General Appearance: Alert, WD/WN, Mild Distress Eye Exam: Bilateral Eye: Normal Inspection Ears: Normal External Exam, Normal Canal, Hearing Grossly Normal, Normal TMs Nose: Normal Inspection, No Blood Throat/Mouth: Normal Inspection, Normal Lips, Normal Oropharynx, Normal Voice, No Airway Compromise Head: Atraumatic, Normocephalic Neck: Normal Inspection Respiratory/Chest: No Respiratory Distress, No Accessory Muscle Use, Rhonchi. No: Wheezing Cardiovascular: Regular Rate, Rhythm, No Edema, Tachycardia GI/Abdominal: Normal Bowel Sounds, Soft, No Distention, Tender (RUQ). No: Non- Tender, Distended Back Exam: No: CVA Tenderness (R), CVA Tenderness (L) Extremities: Normal Range of Motion, Non-Tender, Pedal Edema (bilaterally). No: No Pedal Edema, Vinod's Sign, Limited Range of Motion, Increased Warmth, Redness Neurological: Alert, CN II-XII Intact, No Motor/Sensory Deficits, Oriented x 3, Tremor Psychiatric: Alert, Normal Affect, Normal Cognition, Normal Mood, Oriented Skin Exam: Warm, Dry, Intact, Normal color, No rash COURSE, BEHAVIORAL HEALTH COMP - Course Vital Signs: Last Vital Signs Temp 36.7 C 09/01/21 12:20 Pulse 101 H 09/01/21 12:20 Resp 18 09/01/21 12:20 BP 166/97 H 09/01/21 12:20 Pulse Ox 97 09/01/21 12:20 Orders, Labs, Meds: Active Orders 24 hr Category Date Time Status UA W/MICROSCOPIC [URIN] Stat Lab 09/01/21 12:16 Ordered Laboratory Tests 09/01/21 09/01/21 09/01/21 Range/Units 11:18 11:30 11:30 WBC 10.7 (4.5-11.0) K/uL RBC 4.77 (4.30-5.90) M/uL Hgb 14.8 (12.0-15.0) g/dL Hct 44.5 (40.0-54.0) % MCV 93 (80-98) fL MCH 31 (27-31) pg MCHC 33 (32-36) % Plt Count 202 (150-400) K/uL Sodium (140-148) mmol/L Potassium (3.6-5.2) mmol/L Chloride (100-108) mmol/L Carbon Dioxide (21-32) mmol/L Anion Gap (5.0-14.0) mmol/L BUN (7-18) mg/dL Creatinine (0.8-1.3) mg/dL Est Cr Clr Drug Dosing mL/min Estimated GFR (MDRD) (>60) Glucose (74-106) mg/dL Calcium (8.5-10.1) mg/dL Total Bilirubin (0.2-1.0) mg/dL AST (15-37) U/L ALT (12-78) U/L Alkaline Phosphatase (46-116) U/L Total Protein (6.4-8.2) g/dL Albumin (3.4-5.0) g/dL Globulin (2.3-3.5) g/dL Albumin/Globulin Ratio (1.2-2.2) Urine Opiates Screen Negative (NEGATIVE) Ur Oxycodone Screen Presumptive positive H (NEGATIVE) Urine Methadone Screen Negative (NEGATIVE) Ur Propoxyphene Screen Negative (NEGATIVE) Ur Barbiturates Screen Negative (NEGATIVE) Ur Tricyclics Screen Negative (NEGATIVE) Ur Phencyclidine Scrn Negative (NEGATIVE) Ur Amphetamine Screen Negative (NEGATIVE) U Methamphetamines Scrn Negative (NEGATIVE) Urine MDMA Screen Negative (NEGATIVE) U Benzodiazepines Scrn Negative (NEGATIVE) U Cocaine Metab Screen Negative (NEGATIVE) U Marijuana (THC) Screen Negative (NEGATIVE) Ethyl Alcohol < 3 mg/dL SARS CoV-2 RNA Rapid CAIN 09/01/21 09/01/21 Range/Units 11:30 12:12 WBC (4.5-11.0) K/uL RBC (4.30-5.90) M/uL Hgb (12.0-15.0) g/dL Hct (40.0-54.0) % MCV (80-98) fL MCH (27-31) pg MCHC (32-36) % Plt Count (150-400) K/uL Sodium 134 L (140-148) mmol/L Potassium 4.1 (3.6-5.2) mmol/L Chloride 96 L (100-108) mmol/L Carbon Dioxide 27 (21-32) mmol/L Anion Gap 15.1 H (5.0-14.0) mmol/L BUN 12 (7-18) mg/dL Creatinine 0.7 L (0.8-1.3) mg/dL Est Cr Clr Drug Dosing 141.22 mL/min Estimated GFR (MDRD) > 60 (>60) Glucose 125 H (74-106) mg/dL Calcium 8.7 (8.5-10.1) mg/dL Total Bilirubin 0.7 (0.2-1.0) mg/dL AST 29 (15-37) U/L ALT 27 (12-78) U/L Alkaline Phosphatase 95 (46-116) U/L Total Protein 7.8 (6.4-8.2) g/dL Albumin 3.9 (3.4-5.0) g/dL Globulin 3.9 H (2.3-3.5) g/dL Albumin/Globulin Ratio 1.0 L (1.2-2.2) Urine Opiates Screen (NEGATIVE) Ur Oxycodone Screen (NEGATIVE) Urine Methadone Screen (NEGATIVE) Ur Propoxyphene Screen (NEGATIVE) Ur Barbiturates Screen (NEGATIVE) Ur Tricyclics Screen (NEGATIVE) Ur Phencyclidine Scrn (NEGATIVE) Ur Amphetamine Screen (NEGATIVE) U Methamphetamines Scrn (NEGATIVE) Urine MDMA Screen (NEGATIVE) U Benzodiazepines Scrn (NEGATIVE) U Cocaine Metab Screen (NEGATIVE) U Marijuana (THC) Screen (NEGATIVE) Ethyl Alcohol mg/dL SARS CoV-2 RNA Rapid CAIN Negative Medications Discontinued Medications Generic Name Dose Route Start Last Admin Trade Name Freq PRN Reason Stop Dose Admin Lorazepam 1 mg 09/01/21 12:26 09/01/21 12:38 Lorazepam 1 Mg Tab PO 09/01/21 12:27 1 mg ONETIME ONE Administration Thiamine HCl 100 mg 09/01/21 12:15 09/01/21 12:39 Thiamine 100 Mg Tab PO 09/01/21 12:16 100 mg ONETIME ONE Administration Medical Clearance: 09/01/21 12:46 Medically stable for transfer to [facility]. Departure - Departure Time of Disposition: 12:55 Disposition: DC/Tfer to Other 70 Condition: Fair Clinical Impression: Alcohol abuse Alcohol withdrawal Qualifiers: Complication of substance-induced condition: uncomplicated Qualified Code(s): F10.230 - Alcohol dependence with withdrawal, uncomplicated HTN (hypertension) Qualifiers: Hypertension type: unspecified Qualified Code(s): I10 - Essential (primary) hypertension - Discharge Information *PRESCRIPTION DRUG MONITORING PROGRAM REVIEWED*: Not Applicable *COPY OF PRESCRIPTION DRUG MONITORING REPORT IN PATIENT MATTHEW: Not Applicable Referrals: PCP,None [Primary Care Provider] - Forms: ED Department Discharge Sepsis Event Note (ED) - Focused Exam Vital Signs: Vital Signs Temp Pulse Resp BP Pulse Ox 09/01/21 12:20 36.7 C 101 H 18 166/97 H 97 09/01/21 11:29 36.7 C 101 H 18 166/97 H 97 - My Orders Last 24 Hours: My Active Orders 09/01/21 12:16 UA W/MICROSCOPIC [URIN] Stat - Assessment/Plan Last 24 Hours: My Active Orders 09/01/21 12:16 UA W/MICROSCOPIC [URIN] Stat
[2021-09-01] MEDS: LORazepam 1 MG Tab PO ONE ×2 (12:37→12:38)
[2021-09-01] MEDS ORDERED: LORazepam 1 MG Tab PO ONE (13:06)
== END 2021-09-01 13:43 | disposition other institution (70) ==
LOC: JP.ED 11:12
DX: F10.230 Alcohol dependence with withdrawal, uncomplicated (principal); Z20.822 Contact with and (suspected) exposure to COVID-19; I25.10 Atherosclerotic heart disease of native coronary artery without angina pectoris; J44.9 Chronic obstructive pulmonary disease, unspecified
CPT/HCPCS: 36415; 80053; 80305; 80307; 81001; 85027; 87635; 99284; A9270; U0002